=== PATIENT | female | born 1990 ===

== ENCOUNTER 2020-04-02 13:01 | Outpatient (CLI) | payer OTHER | END 2020-04-02 15:00 | disposition home or self-care (01) | LOC: PPH VACUNA 13:01 | DX: Z23 Encounter for immunization (principal) ==

== ENCOUNTER 2021-01-14 08:00 | Outpatient (CLI) | payer OTHER | END 2021-01-14 14:16 | disposition home or self-care (01) | LOC: PPH VACUNA 08:00 | PROVIDERS: ATTEND Emergency Medicine Pediatric Emergency Medicine | DX: Z23 Encounter for immunization (principal) ==

== ENCOUNTER 2021-02-17 08:00 | Outpatient (CLI) | payer OTHER | END 2021-02-17 08:30 | disposition home or self-care (01) | LOC: PPH VACUNA 08:00 | PROVIDERS: ATTEND Emergency Medicine Pediatric Emergency Medicine | DX: Z23 Encounter for immunization (principal) ==